=== PATIENT | female | born 1955 | race Caucasian/White ===

== ENCOUNTER 2020-04-15 02:35 | Outpatient (CLI) | payer MEDICARE, BC, SELFPAY ==
[2020-04-15 16:34] LABS: SARS-CoV-2 RNA PCR Negative
== END 2020-04-15 02:36 | disposition home or self-care (01) ==
LOC: ANHCOVIDDT 02:35
PROVIDERS: Visit Provider Internal Medicine Gastroenterology
DX: Z01.818 Encounter for other preprocedural examination (principal); Z20.828 Contact with and (suspected) exposure to other viral communicable diseases
CPT/HCPCS: 87635; C9803; U0003

== ENCOUNTER 2020-04-17 00:18 | Day surgery (SDC) | payer MEDICARE, BC, SELFPAY ==
[2020-04-08 14:10] VITALS: BMI 22.5
[2020-04-17 07:53] VITALS: BP 163/81; PULSE 76; RESP 18; TEMP 36.6; O2SAT 99; BMI 22.7
[2020-04-17] MEDS: LACTATED RINGERS 1,000 ML 150 ML IV CONT (08:06)
--- NOTE | 2020-04-17 08:23 | P.HP_ITS ---
History of Present Illness History of Present Illness Consent: Risks, benefits, and alternatives have been discussed and questions answered. Patient agrees to proceed with procedure. Chief complaint: Neoplasm Screening Narrative: Florecita Palomo is a 64 year old female Here for colon cancer screening. Her mother had colon cancer [facility] Social History Social History Smoking packs per day: 1.5 Smoking cigarettes per day: 30.0 Years smoked: 5 Smoking pack-years: 7.50 Smoking status: Former smoker Tobacco type: cigarettes Alcohol intake: never Substance use: never Substance use type: does not use Living arrangements: with family Spiritual care concerns: No Meds Home Medications and Allergies Home Medications Medication Instructions Recorded Confirmed Type calcium carbonate-vitamin D3 1 cap PO DAILY 04/08/20 04/17/20 History [Calcium 600 + D(3)] ciclopirox 1 applic TOPICAL DAILY 04/08/20 04/17/20 History coQ10 (ubiquinol) 100 mg PO DAILY 04/08/20 04/17/20 History escitalopram oxalate 10 mg PO DAILY 04/08/20 04/17/20 History metoprolol succinate 25 mg PO DAILY 04/08/20 04/17/20 History psyllium husk [Fiber (psyllium 0.4 g PO DAILY 04/08/20 04/17/20 History husk)] Allergies Allergy/AdvReac Type Severity Reaction Status Date / Time Sulfa (Sulfonamide Allergy Mild Rash Verified 04/17/20 07:37 Antibiotics) Vital Signs Vital Signs - 24 hr 04/17/20 07:53 Temperature 36.6 C Pulse Rate 76 Respiratory Rate 18 Blood Pressure 163/81 H Pulse Oximetry 99 Exam Resp: Auscultation: clear to auscultation bilaterally Cardio: Rate: regular rate Rhythm: regular rhythm GI: GI Palp: Yes Soft to palpation and No Tenderness to palpation present (GI) Assessment and Plan Assessment and plan (1) Colon cancer screening: Code(s): Z12.11 - Encounter for screening for malignant neoplasm of colon Status: Acute Assessment and Plan: Colonoscopy with possible biopsy or polypectomy or cautery or injection of substances.
--- NOTE | 2020-04-17 08:34 | WPDANESEPPF ---
Anes - Initial Pre Proc Eval Procedure: Operation Date: 04/17/20 08:30 Proposed Procedures p Screening Colonoscopy - Charan Park MD Date/Time: 04/17/20 08:34 Surgeon: Charan Park MD Pre Op Diagnosis: Neoplasm Screening Patient Data Age: 64 Gender: F Height: 5 ft 3 in Weight: 58.2 kg Last Vital Signs Temp 97.8 F 04/17/20 07:53 Pulse 76 04/17/20 07:53 Resp 18 04/17/20 07:53 BP 163/81 H 04/17/20 07:53 Pulse Ox 99 04/17/20 07:53 Allergies Allergy/AdvReac Type Severity Reaction Status Date / Time Sulfa (Sulfonamide Allergy Mild Rash Verified 04/17/20 07:37 Antibiotics) Home Medications Medication Instructions Recorded Confirmed Type calcium carbonate-vitamin D3 1 cap PO DAILY 04/08/20 04/17/20 History [Calcium 600 + D(3)] ciclopirox 1 applic TOPICAL DAILY 04/08/20 04/17/20 History coQ10 (ubiquinol) 100 mg PO DAILY 04/08/20 04/17/20 History escitalopram oxalate 10 mg PO DAILY 04/08/20 04/17/20 History metoprolol succinate 25 mg PO DAILY 04/08/20 04/17/20 History psyllium husk [Fiber (psyllium 0.4 g PO DAILY 04/08/20 04/17/20 History husk)] Patient hx anesthesia problems: none Family hx anesthesia problems: none PMFSH Past Medical History Medical History (Updated 04/17/20 @ 08:34 by Gómez Titus MD) Arthritis Hypertension Irregular heart beat Social History Social History Smoking packs per day: 1.5 Smoking cigarettes per day: 30.0 Years smoked: 5 Smoking pack-years: 7.50 Smoking status: Former smoker Tobacco type: cigarettes Alcohol intake: never Substance use: never Substance use type: does not use Living arrangements: with family Spiritual care concerns: No Anes - Eval Final PreProcedure Day of Procedure 04/17/20 08:34 Patient weight: normal Heart: regular rate and rhythm Lungs: clear to auscultation Airway: Mallampati scale class II Neurological: alert and oriented Last oral intake: >/= 8 hours ASA classification: II Emergent: no Anesthetic plan: proceed Anesthesia type and monitoring: general GIVS and standard monitoring Informed Consent: The patient's anesthetic plan and its attendant risks and benefits were discussed with the patient/family/POA. Questions were solicited and answers provided to the satisfaction of the patient/family/POA.
[2020-04-17 08:57] VITALS: BP 105/56; PULSE 60; RESP 20; O2SAT 99
[2020-04-17 09:07] VITALS: BP 118/67; PULSE 74; RESP 20; O2SAT 98
[2020-04-17 09:17] VITALS: BP 124/71; PULSE 68; RESP 20; O2SAT 98
== END 2020-04-17 09:37 | disposition home or self-care (01) ==
PROVIDERS: PCP Family Medicine; Visit Provider Internal Medicine Gastroenterology
PROC: 0DJD8ZZ Inspection of Lower Intestinal Tract, Via Natural or Artificial Opening Endoscopic (ICD-10-PCS; CPT 45378; principal; 2020-04-17 08:30)
DX: Z12.11 Encounter for screening for malignant neoplasm of colon (principal); Z80.0 Family history of malignant neoplasm of digestive organs; Z87.891 Personal history of nicotine dependence
CPT/HCPCS: G0105; J2001; J2704; J7120